=== PATIENT | female | born 2000 | race Caucasian/White ===

== ENCOUNTER 2022-01-02 07:05 | Emergency (ER) | payer OTHER ==
[~2022-01-02] VITALS: Ht 154.9 cm; Wt 81.6 kg
[2022-01-02 07:18] VITALS: BP 107/79
[2022-01-02] MEDS ORDERED: IBUPROFEN 600 MG TAB PO ONE (07:25)
--- NOTE | 2022-01-02 07:43 | NUR ---
21 Y/O FEMALE BIB SELF C/O BODY ACHES 4/10 X TPDAY, RUNNY NOSE, NON-PRODUCTIVE COUGH AND SUBJECTIVE FEVER XYESTERDAY. ORAL TEMP IN TRIAGE 101.3, ORAL TEMP IN BED 102.2, TOOK TYLENOL FOR FEVER AND PAIN WITH MINIMAL EFFECT AT 0500. PMH:DENIES ALLERGY: CODEINE
--- NOTE | 2022-01-02 08:00 | NUR ---
SWABS WALKED TO LAB HANDED TO JUDY
--- NOTE | 2022-01-02 08:27 | NUR ---
RECHECKED PT TEMPERATURE, FROM 102.2 ORAL TO 101.1 ORAL, PAIN 4/10 TO 0/10, PT STILL WARM TO TOUCH
[2022-01-02] MEDS ORDERED: BPM/118S31 PO (08:33)
[2022-01-02] MEDS ORDERED: IBUP-2213 PO (08:33)
--- NOTE | 2022-01-02 08:39 | NUR ---
DR ONOFRE AT BEDSIDE FOR EVAL
[2022-01-02] MEDS ORDERED: ACETAMINOPHEN EXTRA STRENGTH 500 MG TAB PO ONE (08:45)
--- NOTE | 2022-01-02 09:00 | NUR ---
COOL COMPRESS TO FOREHEAD GIVEN, PT STATES SHE FEELS BETTER
--- NOTE | 2022-01-02 09:01 | NUR ---
XRAY AT BEDSIDE
[2022-01-02 09:21] VITALS: BP 101/52
--- NOTE | 2022-01-02 09:49 | NUR ---
RECHECKED TEMP 98.5 ORAL. PT WARM TO TOUCH, NOT HOT. DR ONOFRE INFORMED OF PT HR ELEAVTED 125, STATED THAT PT WAS OK TO DISCHARGE
--- NOTE | 2022-01-02 09:49 | NUR ---
Patient discharged with v/s stable. Written and verbal after care instructions ABVOUT VRI given and explained. Patient alert, oriented and verbalized understanding of instructions. Ambulatory with steady gait. All questions addressed prior to discharge. ID band removed. Patient advised to follow up with PMD. Rx of MOTRIN, BROMFED COUGH SYRUP given. Patient educated on indication of medication including possible reaction and side effects. Opportunity to ask questions provided and answered.
== END 2022-01-02 09:49 | disposition home or self-care (01) ==
LOC: MED 07:05
DX: J06.9 Acute upper respiratory infection, unspecified (principal); Z20.822 Contact with and (suspected) exposure to COVID-19; Z88.5 Allergy status to narcotic agent
CPT/HCPCS: 71045; 81002; 81025; 99284

== ENCOUNTER 2022-12-30 02:27 | Emergency (ER) | payer BC, OTHER ==
[~2022-12-30] VITALS: Ht 157.5 cm; Wt 77.1 kg
[~2022-12-30 02:27] MED LIST: BPM/118S31 PO; IBUP-2213 PO
[2022-12-30 02:39] VITALS: BP 103/72
--- NOTE | 2022-12-30 02:51 | NUR ---
PT TO ROOM 4 VIA WHEELCHAIR
[2022-12-30] MEDS ORDERED: DEXT 5% /NACL 0.9% 1,000 ML IV ONE (03:05)
[2022-12-30 03:08] LABS: APPEARANCE,URINE CLEAR (CLEAR); BILIRUBIN,URINE NEGATIVE (NEGATIVE); BLOOD, URINE NEGATIVE (NEGATIVE); COLOR,URINE YELLOW (YELLOW); LEUKOCYTE ESTERASE ,URINE NEGATIVE (NEGATIVE); NITRITE, URINE NEGATIVE (NEGATIVE); PH,URINE 8.5 (5.0-9.0); UGLUCOSE NEGATIVE (NEGATIVE)
[2022-12-30] MEDS ORDERED: METOCLOPRAMIDE 10 MG/2 ML INJ VIAL IVP ONE (03:10)
[2022-12-30 03:15] LABS: BASOPHILS % (AUTO) 0.3 % (0.0-2.0); EOSINOPHILS # (AUTO) 0.1 K/uL (0-0.4); EOSINOPHILS % (AUTO) 0.9 % (0.0-4.0); HEMATOCRIT 37.2 % (36-48); HEMOGLOBIN 12.7 g/dL (12.0-16.0); LYMPHOCYTES # (AUTO) 1.9 K/uL (2.5-16.5); LYMPHOCYTES % (AUTO) 12.8 % (20.5-51.1); MEAN CORPUSCULAR HEMOGLOBIN 28 pg (27-31); MEAN CORPUSCULAR HGB CONC 34 g/dL (33-37); MEAN CORPUSCULAR VOLUME 83.1 fL (80-94); MONOCYTES # (AUTO) 0.7 K/uL (0.8-1.0); MONOCYTES % (AUTO) 4.7 % (1.7-9.3); NEUTROPHILS # (AUTO) 11.8 K/uL (1.8-7.7); NEUTROPHILS % (AUTO) 81.3 % (42.2-75.2); PLATELET COUNT (AUTO) 310 K/uL (140-450); RED BLOOD CELL COUNT(AUTO) 4.48 MIL/uL (4.20-5.40); RED CELL DISTRIBUTION WIDTH 13.8 % (11.6-13.7); WHITE BLOOD COUNT (AUTO) 14.6 K/uL (4.8-10.8)
[2022-12-30 03:31] LABS: ALBUMIN 3.9 g/dL (3.4-5.0); ANION GAP 12.1 (8-16); CARBON DIOXIDE 25.1 mmol/L (21-32); CREATININE 0.9 mg/dL (0.6-1.3); MAGNESIUM 1.7 mg/dL (1.8-2.4); PHOSPHORUS 3.7 mg/dL (2.5-4.9); POTASSIUM 3.2 mmol/L (3.5-5.1); TOTAL BILIRUBIN 0.5 mg/dL (0.0-1.0)
[2022-12-30] MEDS ORDERED: PYRIDOXINE 50 MG TAB PO SCH (04:15)
[2022-12-30] MEDS ORDERED: POTASSIUM CHLORIDE 10 MEQ TABER PO ONE (04:15)
[2022-12-30] MEDS ORDERED: MAGNESIUM SULFATE 50% 1,000 MG in NACL 0.9% 50 ML IV ONE (04:15)
[2022-12-30] MEDS ORDERED: CRUSHER, PILL MC ONE (04:24)
--- NOTE | 2022-12-30 04:33 | NUR ---
pt in the bathroom vomiting. ER MD aware- will prescribe anti-nausea medication.
[2022-12-30] MEDS ORDERED: ONDANSETRON 4 MG/2 ML VIAL ONE (04:34)
[2022-12-30] MEDS ORDERED: ONDANSETRON 4 MG/2 ML VIAL IVP ONE (04:35)
[2022-12-30] MEDS ORDERED: NACL 0.9% 1,000 ML IV ONE (05:05)
[2022-12-30] MEDS ORDERED: DOXY1TAB4 PO (05:25)
--- NOTE | 2022-12-30 05:47 | NUR ---
IV removed, catheter intact and site benign. Applied folded 4x4 gauze and tape to stop bleeding.
[2022-12-30 05:48] VITALS: BP 118/72
--- NOTE | 2022-12-30 05:48 | NUR ---
Patient discharged for Nausea and Vomiting, and Morning Sickness. Written and verbal after care instructions given and explained. Patient alert, oriented and verbalized understanding of instructions. Ambulatory with steady gait. All questions addressed prior to discharge. ID band removed. Patient advised to follow up with PMD. Rx of [place] ER 20-20 mg tablet given. Patient educated on indication of medication including possible reaction and side effects. Opportunity to ask questions provided and answered.
== END 2022-12-30 05:48 | disposition home or self-care (01) ==
LOC: MED 02:27
DX: O26.891 Other specified pregnancy related conditions, first trimester (principal); R11.2 Nausea with vomiting, unspecified; Z3A.01 Less than 8 weeks gestation of pregnancy; Z79.899 Other long term (current) drug therapy
CPT/HCPCS: 36415; 80053; 81003; 81025; 83735; 84100; 84702; 85025; 96361; 96374; 96375; 99284; J2405; J2765; J7030; J7042